=== PATIENT | female | born 1960 | race Hispanic/Latino ===

== ENCOUNTER 2024-06-27 12:27 | Emergency (ER) | payer BC ==
[~2024-06-27] VITALS: Ht 167.6 cm; Wt 61.2 kg
[2024-06-27 13:11] LABS: HEMATOCRIT 40.7 % (36-48); MEAN CORPUSCULAR HEMOGLOBIN 29.2 pg (27.0-33.0); MEAN CORPUSCULAR HGB CONC 33.9 g/dL (32.0-36.0); RED BLOOD CELL COUNT(AUTO) 4.73 MIL/uL (4.00-5.50); RED CELL DISTRIBUTION WIDTH 12.7 % (11.0-15.5); WHITE BLOOD COUNT (AUTO) 6.1 K/uL (4.8-10.8)
[2024-06-27 13:13] LABS: CREATININE 0.8 mg/dL (0.5-1.0); MAGNESIUM 2.2 mg/dL (1.80-2.40); POTASSIUM 3.5 mmol/L (3.5-5.1)
[2024-06-27] MEDS: 0.9%NACL 1000ML 1,000 ML IV ONE (13:51)
[2024-06-27 14:22] LABS: APPEARANCE,URINE CLEAR (CLEAR); BILIRUBIN,URINE NEGATIVE (NEGATIVE); COLOR,URINE LIGHT-YELLOW (YELLOW); GLUCOSE, URINE (UA) NEGATIVE (NEGATIVE); KETONES,URINE 40 mg/dL (NEGATIVE); LEUKOCYTE ESTERASE ,URINE 250 Leu/uL (NEGATIVE); NITRATE,URINE NEGATIVE (NEGATIVE); OCCULT BLOOD,URINE SMALL (NEGATIVE); PROTEIN,URINE NEGATIVE (NEGATIVE); UROBILINOGEN,URINE 0.2 mg/dL (0.2-1.0)
[2024-06-27 14:24] LABS: ADD UA MICROSCOPIC YES
[2024-06-27 14:29] LABS: MUCUS,URINE RARE LPF (None Seen); SQUAMOUS EPITHELIAL CELL,UR RARE /HPF (0-2)
[2024-06-27] MEDS: metoPROLOL tartRATE 1 MG/ML 5ML VIAL IV ONE ×2 (15:01→16:44)
[2024-06-27] MEDS ORDERED: LORA0.5T83 PO (16:19)
[2024-06-27] MEDS ORDERED: METO-408 PO (16:19)
[2024-06-27 17:00] VITALS: BP 148/79; PULSE 92; RESP 18; TEMP 98; O2SAT 98
[2024-06-27] MEDS ORDERED: MACR100 PO (17:15)
== END 2024-06-27 17:06 | disposition home or self-care (01) ==
LOC: EDH 12:27
DX: F41.1 Generalized anxiety disorder (principal); R00.2 Palpitations; N30.00 Acute cystitis without hematuria; G47.00 Insomnia, unspecified; Z79.899 Other long term (current) drug therapy; Z88.5 Allergy status to narcotic agent; Z90.49 Acquired absence of other specified parts of digestive tract; Z91.041 Radiographic dye allergy status
CPT/HCPCS: 99284; 96374; 71045; 96361; 83735; 84484; 80048; 85027; 87040; 87086; 83605; 81001; 36415; 96376; 93005; J3490 ×2